=== PATIENT | female | born 1970 | race Caucasian/White ===

== ENCOUNTER 2016-05-29 19:11 | Emergency (ER) | payer OTHER ==
[2016-05-29 18:54] LABS: BASOPHIL% 0.3 % (0-2.5); EOSINOPHIL# 0.1 X10e3 (0-0.7); EOSINOPHIL% 0.7 % (0.0-7.0); HEMATOCRIT 38.2 % (35.0-45.0); HEMOGLOBIN 11.9 gm/dL (12.0-16.0); LYMPHOCYTE# 0.8 X10e3 (1.0-3.5); LYMPHOCYTE% 6.2 % (17.0-45.0); MEAN CELL VOLUME 93.3 FL (83-96); MEAN CORPUSCULAR HGB CONC 31.1 g/dL (30-36); MEAN PLATELET VOLUME 7.6 FL (6.5-11.5); MONOCYTE# 0.8 X10e3 (0-1.0); MONOCYTE% 6.5 % (3.0-12.0); NEUTROPHIL# 11.1 X10e3 (1.5-7.1); NEUTROPHIL% 86.3 % (40-75); PLATELET COUNT 354 X10e3 (140-420); RED CELL DISTRIBUTION WIDTH 14.3 % (11.0-15.5); WHITE BLOOD COUNT 12.9 X10e3 (4.0-10.5)
[2016-05-29 18:55] LABS: DIFF IND NO
[~2016-05-29 19:11] MED LIST: ALLERGY10 M1 PO; CLOTRIMAZOLE-BE45 GM; HYDROXYZINE HCL25 M1 PO; NASONEX17 GM; SYNTHROID0.15 MG PO
[2016-05-29 19:13] LABS: BUN/CREATININE RATIO 14.28; CALCIUM SERUM 8.2 mg/dL (8.4-10.2); CREATININE SERUM 0.7 mg/dL (0.6-1.4); GLOM FILT RATE Estimated 102.5 mL/min (>60); POTASSIUM 3.4 mmol/L (3.5-5.1)
[2016-05-29] MEDS ORDERED: GABAPENTIN400 M2 PO (19:38)
[2016-05-29] MEDS ORDERED: BUSPAR15 M3 DOB (19:39)
[2016-05-29] MEDS ORDERED: SERTRALINE HCL100 MG PO (19:40)
[2016-05-29] MEDS ORDERED: SYNTHROID175 MCG PO (19:40)
[2016-05-29] MEDS ORDERED: AFREZZA (19:42)
== END 2016-05-29 23:05 | disposition home or self-care (01) ==
LOC: CED 19:11
PROVIDERS: Emergency Medicine
DX: L02.412 Cutaneous abscess of left axilla (principal); E10.65 Type 1 diabetes mellitus with hyperglycemia
CPT/HCPCS: 36415; 80048; 82947; 84703; 85025; 96361; 96365; 96374; 96375; 96376; 99284